=== PATIENT | female | born 1950 | race Caucasian/White ===

== ENCOUNTER 2017-01-03 17:07 | Emergency (ER) | payer MEDICARE, OTHER ==
[2017-01-03] MEDS ORDERED: Sodium Chloride 0.9% 10 ML Syringe FLUSH PRN (18:19)
--- NOTE | 2017-01-03 18:22 | EDM.PDOC ---
ED HPI GENERAL MEDICAL PROBLEM - General Chief Complaint: Syncope Stated Complaint: SYNCOPE Time Seen by Provider: 01/03/17 18:02 Source of Information: Reports: Patient History Limitations: Reports: No Limitations - History of Present Illness INITIAL COMMENTS - FREE TEXT/NARRATIVE: Patient is a 66-year-old female who presents to the ED complaining of an episode of blacking out. Patient states she was at a baby shower and noticed her stomach started to ache. Patient states she had to leave the shower and while walking to her car became dizzy and lightheadaded which is not completely abnormal for her. Patient states with body position changes she frequently has dizziness that in one most cases subsides with time. Blood pressures normally run low 90s systolics. She is on carvedilol,altace, and Lasix. 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 States she drove to the closest gas station and went to the bathroom. Patient states she had episode of diarrhea with no blood present. Describes the abdominal discomfort as a crampy sensation. States she ate at [employer] earlier in the day and had lettuce which does not always agree with her. Crampy sensation was generalized with no pain per say. States she felt good enough after the bowel movement to drive herself home. During the drive home she became more dizzy and had the sensation she was going to pass out. States she pulled over placed the care in park and and layed back in her seat. Awoke with the car moving in reverse towards some trees. Questions while placing the car in park accidentally got it into reverse prior to passing out. She did have some incontinence to urine. Did not bite her tongue. She awoke with a clear mind. Patient went home changed and came to the ER for further evaluation. She had no symptoms while ambulating into the ED. She feels perfectly fine. Denies any fever, vision changes, headache, chest pain, shortness of breath, difficulty swallowing, weakness to the upper or lower extremities, focal neurological deficits, abdominal pain, dysuria, nausea/vomiting, or any additional complaints. - Related Data Allergies Allergy/AdvReac Type Severity Reaction Status Date / Time contrast dye from CT Allergy Other Uncoded 01/03/17 17:17 Home Meds: Home Meds Aspirin [Ecotrin] 325 mg PO DAILY 01/03/17 [History] Budesonide/Formoterol Fumarate [Symbicort 160-4.5 Mcg Inhaler] 2 puff INH BID [History] Ca Carbonate/Vitamin D3/Vit K [Citracal Soft Chew] 2 tab PO DAILY 01/03/17 [ History] Carvedilol [Coreg] 6.25 mg PO DAILY 01/03/17 [History] Escitalopram [Lexapro] 20 mg PO DAILY 01/03/17 [History] Fish Oil/[place]-3 Fatty Acids [Fish Oil 1,000 MG] 1,000 mg PO DAILY 01/03/17 [ History] Furosemide [Lasix] 20 mg PO DAILY 01/03/17 [History] Montelukast [Singulair] 10 mg PO DAILY 01/03/17 [History] Nitroglycerin [Nitrostat] 0.4 mg PO ASDIRECTED PRN 01/03/17 [History] Ramipril [Altace] 2.5 mg PO DAILY 01/03/17 [History] Triamcinolone Acetonide [Nasacort] 2 spray UGO BID 01/03/17 [History] atorvaSTATin [Lipitor] 20 mg PO DAILY 01/03/17 [History] Past Medical History HEENT History: Reports: Impaired Vision Other HEENT History: wears glasses Cardiovascular History: Reports: High Cholesterol, Pacemaker, Other (See Below) Other Cardiovascular History: cardiomyopathy [employer] History: Reports: Psychiatric History: Reports: Depression - Past Surgical History HEENT Surgical History: Reports: Adenoidectomy, Tonsillectomy Social & Family History - Tobacco Use Smoking Status *Q: Never Smoker - Caffeine Use Caffeine Use: Reports: Coffee, Soda, Tea - Recreational Drug Use Recreational Drug Use: No ED ROS GENERAL - Review of Systems Review Of Systems: See Below Constitutional: Denies: Fever, Chills, Malaise, Weakness, Fatigue, Decreased Appetite HEENT: Reports: No Symptoms Respiratory: Reports: No Symptoms Cardiovascular: Reports: Blood Pressure Problem, Lightheadedness, Syncope. Denies: Chest Pain, Dyspnea on Exertion, Palpitations GI/Abdominal: Reports: Abdominal Pain (Episodic abdominal cramping generalized with one episode of diarrhea with no blood.), Diarrhea. Denies: Constipation, Distension, Flatus, Nausea, Vomiting : Reports: No Symptoms Musculoskeletal: Reports: No Symptoms Neurological: Reports: Dizziness, Syncope. Denies: Headache, Numbness, Tingling - Physical Exam Exam: See Below Exam Limited By: No Limitations General Appearance: Alert, WD/WN, No Apparent Distress Eye Exam: Bilateral Eye: PERRL Ears: Hearing Grossly Normal Nose: Normal Inspection Throat/Mouth: Normal Voice, No Airway Compromise, Other (Oral mucosa is mildly dry) Head Exam: Atraumatic, Normocephalic Neck: Normal Inspection, Supple Respiratory/Chest: No Respiratory Distress, Lungs Clear, Normal Breath Sounds, No Accessory Muscle Use Cardiovascular: Normal Peripheral Pulses, Regular Rate, Rhythm, Other (No obvious systolic murmur present) GI/Abdominal: Normal Bowel Sounds, Soft, Non-Tender, No Organomegaly, No Distention Neuro Exam (Abbreviated): Alert, Oriented, CN II-XII Intact, Normal Cognition, No Motor/Sensory Deficits Back Exam: Normal Inspection Extremities: Normal Inspection, Normal Range of Motion, Non-Tender, No Pedal Edema, Normal Capillary Refill Psychiatric: Normal Affect, Normal Mood Skin Exam: Warm, Dry, Intact, Normal Color Course - Vital Signs Last Recorded V/S: Last Vital Signs Temp 97.0 F 01/03/17 17:18 Pulse 62 01/03/17 17:18 Resp 16 01/03/17 17:18 BP 110/72 01/03/17 17:18 Pulse Ox 96 01/03/17 17:18 Orthostatic Blood Pressure [ 113/69 Standing] Orthostatic Blood Pressure [ 119/81 Sitting] Orthostatic Blood Pressure [ 102/66 Supine] - Orders/Labs/Meds Orders: Active Orders 24 hr Category Date Time Status EKG 12 Lead [EKG Documentation Completion] [RC] STAT Care 01/03/17 17:34 Active Orthostatic Vital Signs [RC] ASDIRECTED Care 01/03/17 18:18 Active Peripheral IV Care [RC] . DIRECTED Care 01/03/17 18:19 Active CXR [Chest 1V Frontal] [CR] Stat Exams 01/03/17 18:18 Taken Peripheral IV Insertion Adult [OM.PC] Stat Oth 01/03/17 18:19 Ordered Labs: Laboratory Tests 01/03/17 01/03/17 01/03/17 Range/Units 18:35 18:35 18:35 WBC 12.36 H (3.98-10.04) K/mm3 RBC 4.45 (3.98-5.22) M/mm3 Hgb 13.7 (11.2-15.7) gm/L Hct 41.0 (34.1-44.9) % MCV 92.1 (79.4-94.8) fl MCH 30.8 (25.6-32.2) pg MCHC 33.4 (32.2-35.5) g/dl RDW Std Deviation 45.6 (36.4-46.3) fL Plt Count 189 (182-369) K/mm3 MPV 9.9 (9.4-12.3) fl Neut % (Auto) 72.6 H (34.0-71.1) % Lymph % (Auto) 11.5 L (19.3-51.7) % Bates % (Auto) 9.5 (4.7-12.5) % Eos % (Auto) 6.0 H (0.7-5.8) Baso % (Auto) 0.2 (0.1-1.2) % Neut # (Auto) 8.97 H (1.56-6.13) K/mm3 Lymph # (Auto) 1.42 (1.18-3.74) K/mm3 Bates # (Auto) 1.18 H (0.24-0.36) K/mm3 Eos # (Auto) 0.74 H (0.04-0.36) K/mm3 Baso # (Auto) 0.03 (0.01-0.08) K/mm3 PT 10.3 (8.0-13.0) SECONDS INR 0.95 APTT 23 (22-36) SECONDS Sodium 141 (136-145) mEq/L Potassium 3.8 (3.5-5.1) mEq/L Chloride 104 (98-107) mEq/L Carbon Dioxide 26 (21-32) mEq/L Anion Gap 14.8 (5-15) BUN 16 (7-18) mg/dL Creatinine 0.9 (0.55-1.02) mg/dL Est Cr Clr Drug Dosing 58.18 mL/min Estimated GFR (MDRD) > 60 (>60) mL/min BUN/Creatinine Ratio 17.8 (14-18) Glucose 120 H (80-115) mg/dL Calcium 9.7 (8.5-10.1) mg/dL Total Bilirubin 0.7 (0.2-1.0) mg/dL AST 33 (15-37) U/L ALT 46 (14-59) U/L Alkaline Phosphatase 92 (46-116) U/L Troponin I < 0.017 (0.00-0.056) ng/mL Total Protein 7.3 (6.4-8.2) g/dl Albumin 4.0 (3.4-5.0) g/dl Globulin 3.3 gm/dL Albumin/Globulin Ratio 1.2 (1-2) Urine Color (Yellow) Urine Appearance (Clear) Urine pH (5.0-8.0) Ur Specific [place] (1.005-1.030) Urine Protein (Negative) Urine Glucose (UA) (Negative) Urine Ketones (Negative) Urine Occult Blood (Negative) Urine Nitrite (Negative) Urine Bilirubin (Negative) Urine Urobilinogen (0.2-1.0) Ur Leukocyte Esterase (Negative) Urine RBC (0-5) /hpf Urine WBC (0-5) /hpf Ur Epithelial Cells (0-5) /hpf Urine Bacteria (FEW) /hpf Urine Mucus (FEW) /hpf Blood Type Gel Antibody Screen 01/03/17 01/03/17 Range/Units 18:35 18:51 WBC (3.98-10.04) K/mm3 RBC (3.98-5.22) M/mm3 Hgb (11.2-15.7) gm/L Hct (34.1-44.9) % MCV (79.4-94.8) fl MCH (25.6-32.2) pg MCHC (32.2-35.5) g/dl RDW Std Deviation (36.4-46.3) fL Plt Count (182-369) K/mm3 MPV (9.4-12.3) fl Neut % (Auto) (34.0-71.1) % Lymph % (Auto) (19.3-51.7) % Bates % (Auto) (4.7-12.5) % Eos % (Auto) (0.7-5.8) Baso % (Auto) (0.1-1.2) % Neut # (Auto) (1.56-6.13) K/mm3 Lymph # (Auto) (1.18-3.74) K/mm3 Bates # (Auto) (0.24-0.36) K/mm3 Eos # (Auto) (0.04-0.36) K/mm3 Baso # (Auto) (0.01-0.08) K/mm3 PT (8.0-13.0) SECONDS INR APTT (22-36) SECONDS Sodium (136-145) mEq/L Potassium (3.5-5.1) mEq/L Chloride (98-107) mEq/L Carbon Dioxide (21-32) mEq/L Anion Gap (5-15) BUN (7-18) mg/dL Creatinine (0.55-1.02) mg/dL Est Cr Clr Drug Dosing mL/min Estimated GFR (MDRD) (>60) mL/min BUN/Creatinine Ratio (14-18) Glucose (80-115) mg/dL Calcium (8.5-10.1) mg/dL Total Bilirubin (0.2-1.0) mg/dL AST (15-37) U/L ALT (14-59) U/L Alkaline Phosphatase (46-116) U/L Troponin I (0.00-0.056) ng/mL Total Protein (6.4-8.2) g/dl Albumin (3.4-5.0) g/dl Globulin gm/dL Albumin/Globulin Ratio (1-2) Urine Color Yellow (Yellow) Urine Appearance Clear (Clear) Urine pH 6.0 (5.0-8.0) Ur Specific [place] 1.015 (1.005-1.030) Urine Protein Negative (Negative) Urine Glucose (UA) Negative (Negative) Urine Ketones Negative (Negative) Urine Occult Blood Negative (Negative) Urine Nitrite Negative (Negative) Urine Bilirubin Negative (Negative) Urine Urobilinogen 0.2 (0.2-1.0) Ur Leukocyte Esterase Negative (Negative) Urine RBC 0-5 (0-5) /hpf Urine WBC 0-5 (0-5) /hpf Ur Epithelial Cells 5-10 H (0-5) /hpf Urine Bacteria Occasional (FEW) /hpf Urine Mucus Not seen (FEW) /hpf Blood Type A POSITIVE Gel Antibody Screen Negative Meds: Medications Discontinued Medications Generic Name Dose Route Start Last Admin Trade Name Freq PRN Reason Stop Dose Admin Sodium Chloride 1,000 mls @ 250 mls/hr 01/03/17 18:30 01/03/17 18:40 Normal Saline IV 250 mls/hr ASDIRECTED JEANNE Administration Sodium Chloride 10 ml 01/03/17 18:19 01/03/17 18:41 Saline Flush FLUSH 10 ml ASDIRECTED PRN Administration Keep Vein Open - Re-Assessments/Exams Free Text/Narrative Re-Assessment/Exam: IV established with normal saline 250 mL per hour. We'll obtain basic labs including CBC, chem 14, PTT/INR, PTT, troponin, UA, chest x-ray, and orthostatic vitals. EKG atrial paced rhythm at a rate of 62. Orthostatic vitals : Sitting 108/65 with heart rate of 80, standing 88/62 with a heart rate of 71, supine 110/71 with heart rate of 75. Patient denied being dizzy with testing. 01/03/17 19:54 Labs reviewed: White blood cell count 12.36, neutrophil percent is 72.6, neutrophil number is 8.97, hemoglobin 13.7, platelet count 189, sodium 141, potassium 3.8, AG 14.8, creatinine 0.9, glucose 120, troponin less than 0.017, UA was negative for any concerning findings. Chest x-ray reveals dual-chamber pacemaker device present to the left upper chest. Cardiomegaly. No acute findings noted. Final interpretation is pending. Reassessment, patients blood pressure is 107 over systolic. She has no symptoms at this time. In total she's had 300 mL of fluid. Will administer additional 200 mL and then recheck her blood pressures. 2034 Spoke with Trista Roberson on-call [employer] pacemaker device front desk representative. Device check is normal. Battery life is less than one month. Will have patient be incontact with pacemaker clinic to ensure they are following. 2044 Reassessment, patient has no symptoms at this time. Approximately 500 mL of IV fluids are in. Orthostatic blood pressure recheck showed improvement of her blood pressure. Believe she is mildly dry in combination of taking Lasix, carvedilol, and alternate ice for blood pressure control. Patient states they' ve been talking about stopping the altace due to her frequent episodes of dizziness with body position changes. Patient is ready be discharged home. Discharge instructions as documented. Departure - Departure Time of Disposition: 21:03 Disposition: Home, Self-Care 01 Condition: Good Clinical Impression: Vasovagal syncope, Orthostatic hypotension Syncopal episodes Qualifiers: Syncope type: vasovagal syncope Qualified Code(s): R55 - Syncope and collapse - Discharge Information Instructions: Hypotension, [id number], Dehydration, Adult, [id number], Syncope, [id number] Referrals: Keily Gamez MD [Primary Care Provider] - Forms: ED Department Discharge Additional Instructions: As discussed labs, pacemaker interrogation, and chest x-ray did not reveal any concerning findings. Vital signs were indicating that you were volume depleted. You received 500 mL of normal saline with drastic increase to your blood pressure. You continue to have some mild dizziness with body position changes. This may be associated with taking carvedilol,altace, and Lasix. As discussed they have discussing stopping the altace due to your low blood pressures. I would go ahead and stop taking this medication. Check your blood pressure twice daily at the same time same method keep a daily log. Call and make an appointment with your hearing officer on Thursday to be evaluated in the next week or 2. In addition ensure adequate intake of fluids. With body position changes allow yourself adequate time for your body to normalize to decrease the likelihood of having a syncopal episode. Return to the ED as needed for any new or worsening symptoms. Also follow-up with pacemaker clinic at [place] due to battery life indicating less than one month longevity. - My Orders Last 24 Hours: My Active Orders 01/03/17 17:34 EKG 12 Lead [EKG Documentation Completion] [RC] STAT 01/03/17 18:18 Orthostatic Vital Signs [RC] ASDIRECTED CXR [Chest 1V Frontal] [CR] Stat 01/03/17 18:19 Peripheral IV Care [RC] . DIRECTED Peripheral IV Insertion Adult [OM.PC] Stat - Assessment/Plan Last 24 Hours: My Active Orders 01/03/17 17:34 EKG 12 Lead [EKG Documentation Completion] [RC] STAT 01/03/17 18:18 Orthostatic Vital Signs [RC] ASDIRECTED CXR [Chest 1V Frontal] [CR] Stat 01/03/17 18:19 Peripheral IV Care [RC] . DIRECTED Peripheral IV Insertion Adult [OM.PC] Stat
[2017-01-03] MEDS ORDERED: Sodium Chloride 0.9% 1,000 ML IV SCH (18:30)
--- NOTE | 2017-01-04 08:30 | CR ---
Chest: Portable view of the chest was obtained. Comparison: No prior chest x-ray. Heart size and mediastinum are normal. Lungs are clear. Pacemaker noted. Bony structures are grossly intact. Impression: 1. Nothing acute is identified on portable chest x-ray. Diagnostic code #1
== END 2017-01-03 21:15 | disposition home or self-care (01) ==
LOC: JD.ED 17:07
DX: I95.1 Orthostatic hypotension (principal); E78.00 Pure hypercholesterolemia, unspecified; F32.9 Major depressive disorder, single episode, unspecified; Z98.890 Other specified postprocedural states; Z95.0 Presence of cardiac pacemaker; Z79.82 Long term (current) use of aspirin; Z79.899 Other long term (current) drug therapy; Z91.041 Radiographic dye allergy status
CPT/HCPCS: 36415; 71010; 80053; 81001; 84484; 85025; 85610; 85730; 86850; 86900; 86901; 93005; 96360; 96361; 99284; J7040; J7050